=== PATIENT | female | born 1980 | race Caucasian/White ===

== ENCOUNTER 2017-01-01 16:26 | Emergency (ER) | payer SELFPAY ==
[2017-01-01] MEDS ORDERED: LACTATED RINGERS 1,000 ML ONE ×2 (17:04→19:27)
[2017-01-01 17:11] LABS: ABSOLUTE NEUTROPHIL COUNT 4.8 K/mm3 (1.8-7.7); BASO % 0.3 % (0.2-1.0); EOS % 0.1 % (0.9-2.9); HEMATOCRIT 39.5 % (37.0-47.0); HEMOGLOBIN 12.2 gm/l (12.0-16.0); IMM NEUT% 0.1 % (0-1); LYMPH # 1.1 (1.0-4.8); LYMPH % 15.9 % (15-45); MEAN CELL VOLUME 84.8 fl (81.0-99.0); MEAN CORPUSCULAR HEMOGLOBIN 26.2 pg (27.0-31.0); MEAN CORPUSCULAR HGB CONC 30.9 g/dl (33.0-37.0); MEAN PLATELET VOLUME 10.4 fl (7.4-10.4); MONO # 0.8 (0.0-0.8); MONO % 12.4 % (4-12); NEUT % 71.2 % (43-75); PLATELET COUNT 261 K/mm3 (130-400); RED CELL DISTRIBUTION WIDTH 14.3 % (11.5-14.5)
[2017-01-01 17:15] LABS: ALB/GLOB RATIO 1.3 (>1.0); ALBUMIN 4.1 gm/dL (3.5-5.7); CALCIUM 8.8 mg/dL (8.6-10.3)
[2017-01-01 17:30] LABS: LIPASE 25 U/L (11-82)
[2017-01-01] MEDS ORDERED: PREDNISONE 20 MG TABLET ONE (17:31)
[2017-01-01] MEDS ORDERED: ALBUTEROL/IPRATROPIUM 2.5/0.5 MG 3 ML/EACH DOSE ONE (17:34)
--- NOTE | 2017-01-01 17:44 | RAD ---
History: Chest pain. Comparison: 03/06/2012. Technique: 2 views Findings: The soft tissue and bony structures are unremarkable. The heart size is appropriate. No infiltrate, effusion or pneumothorax is observed. The hilar and mediastinal structures are normal. Impression: 1. A negative 2 view chest
[2017-01-01 18:32] LABS: URINE BILIRUBIN NEGATIVE (NEGATIVE); URINE BLOOD NEGATIVE (NEGATIVE); URINE GLUCOSE (UA) NEGATIVE (NEGATIVE); URINE LEUKOCYTE ESTERASE NEGATIVE (NEGATIVE); URINE NITRITE NEGATIVE (NEGATIVE); URINE PROTEIN 1+ (NEGATIVE); URINE UROBILINOGEN NORMAL (0-1 mg/dl)
[2017-01-01 18:35] LABS: URINE APPEARANCE CLEAR; URINE COLOR YELLOW
[2017-01-01 19:03] LABS: URINE BACTERIA RARE; URINE RBC 0 /hpf; URINE WBC 0-2 /hpf
== END 2017-01-01 19:58 | disposition home or self-care (01) ==
LOC: ED 16:26
DX: J11.1 Influenza due to unidentified influenza virus with other respiratory manifestations (principal); R06.02 Shortness of breath; I10 Essential (primary) hypertension; F17.210 Nicotine dependence, cigarettes, uncomplicated
CPT/HCPCS: 83690; 84703; 85025; 82550; 82553; 80053; 87880; 84484; 81001; 71020; 87804; 94640; 99284 ×2; 96360; 96361; 93005; J7512; J7120 ×2